=== PATIENT | male | born 1990 | race Caucasian/White ===

== ENCOUNTER 2021-08-06 06:48 | Emergency (ER) | payer BC, OTHER, SELFPAY ==
--- NOTE | 2021-08-06 06:53 | ED_ITS ---
HPI - General Adult General: Chief complaint: General Medical Stated complaint: H/A, HIGH BP Time Seen by Provider: 08/06/21 06:50 History of Present Illness: HPI narrative: 31-year-old male presents emergency room complaining of headache with elevated blood pressure. Has been out of his medications for about 1 week. Denies any chest pain. Denies any difficulty with vision or speech. Onset (ago): hour(s) Location: head Radiation: non-radiation Severity: mild Relieving factors: none Exacerbating factors: none Associated symptoms: Reports headache(s); Deny chest pain, confusion, cough, diaphoresis, decreased appetite, dyspnea, fevers/chills, malaise, nausea, rash, palpitations, short of breath, syncope, vomiting or weakness Treatments prior to arrival: none Review of Systems Const: Denies: malaise or diaphoresis ENMT: Denies: throat pain, ear or mastoid pain, nasal discharge or nasal congestion Card: Denies: chest pain, palpitations or syncope Resp: Denies: dyspnea GI: Denies: nausea or vomiting : Denies: flank pain, dysuria, urinary frequency or urinary urgency Skin/Breast: Denies: rash Neuro: Reports: headache(s); Denies: confusion PFSH ED PFSH: Medical History (Updated 08/14/21 @ 07:11 by Deonte Melo DO) HTN (hypertension) Obesity Physical Exam Const: COMMON NORMALS: no acute distress GENERAL APPEARANCE: cooperative and comfortable ORIENTATION/CONSCIOUSNESS: Yes awake, Yes oriented to person, Yes oriented to place and Yes oriented to time HENMT: COMMON NORMALS: normocephalic, atraumatic and hearing grossly normal bilaterally HEAD & SCALP: normocephalic and atraumatic Eye: COMMON NORMALS: Equal, round and reactive pupils present, EOMs intact bilaterally, conjunctivae normal and no scleral icterus CONJUNCTIVA: Yes conjunctivae normal PUPIL: Yes Equal, round and reactive pupils present Neck/C-Spine: COMMON NORMALS: no JVD Resp: COMMON NORMALS: normal respiratory effort, No retractions, No use of accessory muscles and clear to auscultation bilaterally AUSCULTATION: clear to auscultation bilaterally Cardio: COMMON NORMALS: no JVD, regular rate, regular rhythm and No murmurs present (Cardio) RATE: regular rate RHYTHM: regular rhythm GI: COMMON NORMALS: Soft to palpation and No hepatosplenomegaly present AUSCULTATION: Yes normoactive bowel sounds PALPATION: Yes Soft to palpation, No Tenderness to palpation present (GI), No Guarding due to palpation present (GI) and Yes No hepatosplenomegaly present Extremity: COMMON NORMALS: normal to inspection, capillary refill normal, no clubbing, cyanosis or edema, no calf tenderness and no pedal edema Neuro: SENSORIUM/ORIENTATION: Yes oriented to person, Yes oriented to place and Yes oriented to time Skin: COMMON NORMALS: no rashes or lesions noted GENERAL SKIN EXAM: no rashes or lesions noted Course Vital Signs: Vital signs: Vital Signs Pulse Rate 100 08/06/21 08:15 Respiratory Rate 18 08/06/21 08:15 Blood Pressure 138/85 08/06/21 08:15 Pulse Oximetry 95 08/06/21 08:15 MDM - General Adult MDM Narrative: Medical decision making narrative: Blood pressure improved with medications given here. Will refill medication start him on amlodipine 5 mg PKD lisinopril 20 p.o. daily. Advised him to follow-up with primary care doc within the next week. If he has any worsening or change problems return to the emergency room. Lab Data: Labs: Lab Results 08/06/21 08/06/21 07:40 07:40 WBC 6.0 10^3/uL 10^3/ uL (4.0-10.0) RBC 5.18 10^6/uL 10^6 /uL (4.1-5.3) Hgb 15.1 g/dL g/dL (11.7-16.6) Hct 45.3 % % (42.0-52.0) MCV 87.5 fl fl (80-94) MCH 29.2 pg pg (28.0-34.0) MCHC 33.3 g/dL g/dL (30.0-36.0) RDW 11.9 % L % (12.1-15.1) Plt Count 228 10^3/cmm 10^3 /cmm (130-400) MPV 8.5 fL fL (7.4-10.4) Neut % (Auto) 58.0 % % Lymph % (Auto) 28.7 % % [place] % (Auto) 8.5 % % Eos % (Auto) 4.3 % % Baso % (Auto) 0.3 % % Neut # (Auto) 3.47 10^3/uL 10^3 /uL (1.8-7.7) Lymph # (Auto) 1.7 10^3/uL 10^3/ uL (0.8-4.8) [place] # (Auto) 0.5 10^3/uL 10^3/ uL (0.2-0.9) Eos # (Auto) 0.3 10^3/uL 10^3/ uL (0.0-0.8) Baso # (Auto) 0.0 10^3/uL 10^3/ uL (0.0-0.1) Nucleated RBC % (a uto) 0 % % Nucleated RBCs # 0.0 /100WBC /100W BC Sodium 138 mmol/L mmol/L (136-145) Potassium 4.0 mmol/L mmol/L (3.5-5.1) Chloride 103 mmol/L mmol/L (98-107) Carbon Dioxide 21 mmol/L L mmol/ L (22-29) Anion Gap 18.0 (5-19) BUN 10 mg/dL mg/dL (6-20) Creatinine 1.0 mg/dL mg/dL (0.7-1.2) GFR Calculation 87.2 mL/min L mL/ min (90-130) Glucose 148 mg/dL H mg/dL (65-115) Calculated Osmolal ity 288 mOsm/kg mOsm/ kg (285-295) Calcium 8.2 mg/dL L mg/dL (8.5-10.5) Discharge Plan Discharge Patient Disposition: Home Clinical Impression: HTN (hypertension) Condition: Stable Prescriptions: New amlodipine 5 mg tablet 5 mg PO DAILY Qty: 30 RF: 0 lisinopril 20 mg tablet 20 mg PO DAILY Qty: 30 RF: 0 No Action fluoxetine 40 mg capsule 40 mg PO QAM RF: 0 lisinopril 20 mg tablet 30 mg PO QAM RF: 0 amlodipine 5 mg tablet 5 mg PO QAM RF: 0 Aspir-81 81 mg Tablet,Delayed Release (Dr/Ec) 81 mg PO QAM RF: 0 tamsulosin 0.4 mg capsule 0.4 mg PO QAM RF: 0 Nitrostat 0.4 mg Tablet, Sublingual 0.4 mg SUBLINGUAL Q5M PRN (Reason: Chest Pain) RF: 0 metoprolol succinate 25 mg tablet extended release 24 hr 25 mg PO QAM RF: 0 CoQ-10 100 mg Capsule 100 mg PO QAM RF: 0 Discharge Orders: Discharge ED (Routine); Ordered 08/06/21 Ordered By: Deonte Melo Discharge Diet: Usual diet Discharge Activity: Resume usual activity Patient Instructions: Opioid Safety Activity Restrictions/Additional Instructions: Follow-up with your primary care doctor within the week to evaluate blood pressure. 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
[2021-08-06 07:09] VITALS: BP 151/90; PULSE 91; RESP 20; O2SAT 95; BMI 42.5
--- NOTE | 2021-08-06 07:13 | ECG_ITS ---
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 Measurements Intervals [place] Rate: 86 P: 56 MS: 163 QRS: 64 QRSD: 108 T: 63 QT: 354 QTc: 424 Interpretive Statements SINUS RHYTHM No previous ECG available for comparison Electronically Signed On 08-07-2021 8:52:33 ENVIRONMENTAL SERVICES SPECIALIST by Urbano Pressley M.D. [email or web address]
--- NOTE | 2021-08-06 07:14 | XRR_ITS ---
PROCEDURE INFORMATION: Exam: XR Chest Exam date and time: 08/06/2021 7:14 AM Age: 31 years old Clinical indication: Other: Headache; Additional info: History--c/o headache; Ran out of BP meds TECHNIQUE: Imaging protocol: XR of the chest. Views: 1 view. COMPARISON: No relevant prior studies available. FINDINGS: Lungs: Emphysematous change and mild interstitial prominence. Pleural spaces: No pleural effusion. Heart/Mediastinum: Cardiac silhouette accentuated by epicardial fat. Bones/joints: Unremarkable. XR/XR chest 1V portable [id number] IMPRESSION: Emphysematous change and mild interstitial prominence.
[2021-08-06 07:46] LABS: Basophils % 0.3 %; Eosinophils # 0.3 10^3/uL (0.0-0.8); Eosinophils % 4.3 %; Hematocrit 45.3 % (42.0-52.0); Hemoglobin 15.1 g/dL (11.7-16.6); Lymphocytes # 1.7 10^3/uL (0.8-4.8); Lymphocytes % 28.7 %; Mean Corpuscular HGB Conc 33.3 g/dL (30.0-36.0); Mean Corpuscular Hemoglobin 29.2 pg (28.0-34.0); Mean Corpuscular Volume 87.5 fl (80-94); Mean Platelet Volume 8.5 fL (7.4-10.4); Monocytes # 0.5 10^3/uL (0.2-0.9); Monocytes % 8.5 %; Neutrophils # 3.47 10^3/uL (1.8-7.7); Nucleated Red Blood Cells % 0 %; Platelet Count 228 10^3/cmm (130-400); Red Blood Count 5.18 10^6/uL (4.1-5.3); Red Cell Distribution Width 11.9 % (12.1-15.1)
[2021-08-06 07:49] VITALS: BP 152/99; PULSE 92; RESP 19; O2SAT 95
--- NOTE | 2021-08-06 08:01 | PC.PHAR ---
pt states he no longer takes gabapentin 300mg daily ext med shows last filled 06/21/21 30d/s-pt was taking lasix 40mg daily for 7 days rx filled on 07/09/21 7d/s-pt states he is taking lisinopril 30mg daily ext med history shows last filled 06/21/21 30d/s for 20mg daily-
[2021-08-06 08:02] LABS: Blood Urea Nitrogen 10 mg/dL (6-20); Calcium 8.2 mg/dL (8.5-10.5); Carbon Dioxide 21 mmol/L (22-29); Chloride 103 mmol/L (98-107); Creatinine Clr Calc Pharmacy 152.1737; Glomerular Filtration Rate 87.2 mL/min (90-130); Glucose 148 mg/dL (65-115); Osmolality Calculated 288 mOsm/kg (285-295); Sodium 138 mmol/L (136-145)
[2021-08-06 08:15] VITALS: BP 138/85; PULSE 100; RESP 18; O2SAT 95
== END 2021-08-06 08:13 | disposition home or self-care (01) ==
PROVIDERS: Emergency Provider Family Medicine
DX: I10 Essential (primary) hypertension (principal); Z79.82 Long term (current) use of aspirin
CPT/HCPCS: 71045; 80048; 85025; 93005; 99283